=== PATIENT | male | born 1965 | race Caucasian/White ===

== ENCOUNTER 2016-10-23 08:46 | Emergency (ER) | payer SELFPAY ==
[~2016-10-23] VITALS: Ht 175.3 cm; Wt 90.0 kg
[2016-10-23 08:54] VITALS: BP 235/126; PULSE 78; RESP 20
[2016-10-23] MEDS ORDERED: ATEN25TA PO (09:10)
[2016-10-23] MEDS ORDERED: HYDR25TA5 PO (09:10)
[2016-10-23] MEDS ORDERED: LISI40TA PO (09:10)
[2016-10-23] MEDS ORDERED: HYDR-3533 PO (09:49)
[2016-10-23] MEDS ORDERED: MELO-1 PO (09:49)
--- NOTE | 2016-10-23 09:49 | PD ---
HPI Chief Complaint: Back/ Neck Pain or Injury Time Seen by Provider: 09:45 Travel History International Travel<30 days: No Contact w/Intl Traveler<30days: No Traveled to known affect area: No History of Present Illness HPI So 51-year-old man who presents to the emergency department complaining of back pain. He has a history of chronic back pain. He states is been worse over the past couple weeks since he came down to [place] and is moving furniture to help his brother. Spent worse over the past several days. He otherwise has been feeling generally well and healthy. No numbness tingling or weakness. Painful but worse in the right side but no radiation. History Past Medical History Narrative Medical Hepatitis C Rheumatoid arthritis and hypertension Chronic back pain Past Surgical History Surgical History: No Previous Surgery Social History Alcohol Use: Yes (occasional) Tobacco Use: Yes (2PPD) Allergies-Medications (Allergen,Severity, Reaction): Coded Allergies: No Known Allergies (Unverified , 10/23/16) Reported Meds & Prescriptions Reported Meds & Active Scripts Active Reported Hydrochlorothiazide 25 Mg Tab 25 Mg PO DAILY Atenolol 25 Mg Tab 25 Mg PO DAILY Lisinopril 40 Mg Tab 40 Mg PO DAILY Review of Systems Except as stated in HPI: all other systems reviewed are Neg Physical Exam Narrative GENERAL: Well-developed, well-nourished, no acute distress. SKIN: Warm and dry. CARDIOVASCULAR: Warm and well perfused. RESPIRATORY: Normal rate and effort. MUSCULOSKELETAL: Normal appearance of back and bilateral lower extremities. No ecchymosis, swelling, bruising. No rashes. Normal muscle bulk and tone. NEUROLOGICAL: Strength full 5/5 and equal in bilateral lower extremities in proximal and distal muscle groups. 5/5 in large toe flexion and extension. Sensation is intact to light touch throughout. PSYCHIATRIC: Appropriate mood and affect; insight and judgment normal. Data Data Last Documented VS Vital Signs Date Time Temp Pulse Resp B/P Pulse Ox O2 Delivery O2 Flow Rate FiO2 10/23/16 09:02 76 18 10/23/16 08:54 235/126 MDM Medical Decision Making Medical Screen Exam Complete: Yes Emergency Medical Condition: Yes Differential Diagnosis Acute on chronic back pain, strain or sprain, other Narrative Course Medical decision making 51-year-old man, acute on chronic back pain, no recent opiate use. Recommend supportive treatment. Diagnosis Primary Impression: Low back pain Qualified Code: M54.5 - Acute midline low back pain without sciatica Additional Instructions: Take medications as prescribed. Follow up with her primary doctor in the next 2-4 days. Return to the emergency department for any new or worsening symptoms. Med/Other Pt SpecificInfo: Prescription(s) given, No Change to Meds Scripts Hydrocodone-Acetaminophen (Lortab)5-325 Mg Tab1-2 Tab PO Q6H PRN (PAIN) #12 TAB Prov:Musa Sanchez MD 10/23/16 Meloxicam 15 Mg Tab15 Mg PO DAILY #30 TAB Prov:Musa Sanchez MD 10/23/16 Disposition: 01 DISCHARGE HOME Condition: Stable Musa Sanchez MD Oct 23, 2016 09:49
[2016-10-23 10:15] VITALS: BP 205/115; PULSE 85; RESP 18; O2SAT 98
== END 2016-10-23 10:16 | disposition home or self-care (01) ==
LOC: NEPE 08:46
DX: M54.5 Low back pain (principal); G89.29 Other chronic pain; I10 Essential (primary) hypertension; B19.20 Unspecified viral hepatitis C without hepatic coma; M06.9 Rheumatoid arthritis, unspecified; F17.210 Nicotine dependence, cigarettes, uncomplicated
CPT/HCPCS: 99283